=== PATIENT | female | born 1990 | race Two or more races ===

== ENCOUNTER 2017-01-11 15:40 | Emergency (ER) | payer SELFPAY ==
[~2017-01-11] VITALS: Ht 160 cm; Wt 49.0 kg
[2017-01-11 15:47] VITALS: BP 90/61
[2017-01-11] MEDS ORDERED: FLUORESCEIN SODIUM OPHTH 1 EA STRIP OP ONE (16:00)
[2017-01-11] MEDS ORDERED: TETRACAINE HCL 0.5% OPHTALMIC 15 ML BOTTLE OP ONE (16:00)
[2017-01-11] MEDS ORDERED: TETRACAINE HCL/PF 0.5% UD 2 ML BOTTLE ONE (16:03)
[2017-01-11] MEDS ORDERED: FLUORESCEIN SODIUM OPHTH 1 EA STRIP ONE (16:03)
== END 2017-01-11 17:22 | disposition home or self-care (01) ==
LOC: ER 15:42
DX: H57.8 Other specified disorders of eye and adnexa (principal); F32.9 Major depressive disorder, single episode, unspecified
CPT/HCPCS: 99283; A4606; Z7610